=== PATIENT | male | born 1970 | race African-American/Black ===

== ENCOUNTER → 2019-01-26 | Day surgery (SDC) | payer BC ==
[2019-01-19 12:52] LABS: BASOPHILS % 0.4 % (0.0-1.0); EOSINOPHILS # (AUTO) 0.1 (0.0-0.4); EOSINOPHILS % 1.4 % (0.0-6.0); HEMATOCRIT 43.6 % (38.2-49.6); HEMOGLOBIN 14.5 g/dL (14.0-18.0); LYMPHOCYTES % 40.3 % (18.0-39.1); MEAN CORPUSCULAR HEMOGLOBIN 26.4 pg (28-32); MEAN CORPUSCULAR HGB CONC 33.3 g/dL (31-35); MEAN CORPUSCULAR VOLUME 79.3 fL (81-99); MONOCYTES # (AUTO) 0.4 (0.2-0.8); MONOCYTES % 7.1 % (4.4-11.3); NEUTROPHILS # (AUTO) 2.5 (2.1-6.9); NEUTROPHILS % 50.4 % (38.7-80.0); PLATELET COUNT 181 x10e3/uL (140-360); RED CELL DISTRIBUTION WIDTH 13.1 % (11.7-14.4)
[2019-01-19 13:09] LABS: ANION GAP 10.9 mmol/L (8-16); BLOOD UREA NITROGEN 13 mg/dL (7-26); BUN/CREATININE RATIO 12 (6-25); CARBON DIOXIDE 26 mmol/L (22-29); CHLORIDE 103 mmol/L (98-107); CREATININE, SERUM 1.07 mg/dL (0.72-1.25); EST GLOMERULAR FILTRATION RATE > 60 ML/MIN (60-); GLUCOSE 96 mg/dL (74-118); POTASSIUM 3.9 mmol/L (3.5-5.1); SODIUM 136 mmol/L (136-145)
[~2019-01-26] MED LIST: BUPIVACAINE 0.25%/EPI 30ML SDV INJ ONE; DEXAMETHASONE SOD PHOS INJ 4 MG/ML VIAL ONE; FENTANYL CITRATE/PF 100MCG/2 ML INJ ONE; LIDOCAINE HCL 2% LOCAL INJ 5 ML SDV VIAL INJ ONE; MIDAZOLAM HCL 2 MG/2 ML VIAL ONE; ONDANSETRON HCL INJ 2MG/ML 2ML 2 MG/ML VIAL ONE; PROPOFOL IV EMULSION 10 MG/ML 20 ML VIAL ONE; SEVOFLURANE INHAL SOLN 250 ML PEN BTL ONE
--- OUTSIDE RECORDS SUMMARY | 2019-01-26 06:51 | XMS REPORT | Clinical Summary ---
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 Active Problems No known active problems Encounters Care Team Description Date Type Specialty Cem Bui MD 07/18/2018 Telephone Internal Medicine Cem Bui MD Carbuncle (Primary Dx); Soft tissue injury of lower leg, sequela; Weight gain 07/12/2018 Office Visit Internal Medicine Cem Bui MD 06/07/2018 Telephone Internal Medicine after 01/25/2018 Family History Medical History Relation Name Comments Arthritis Father Hypertension Mother Relation Name Status Comments Father Alive Mother Alive Social History Date Tobacco Use Types Packs/Day Years Used Never Smoker Smokeless Tobacco: Never Used Alcohol Use Drinks/Week oz/Week Comments Yes social Sex Assigned at Date Recorded Not on file Industry Job Start Date Occupation Not on file Not on file Not on file Travel End Travel History Travel Start No recent travel history available. Last Filed Vital Signs Time Taken Vital Sign Reading 07/12/2018 1:15 PM CDT Blood Pressure 135/81 07/12/2018 1:15 PM CDT Pulse 77 07/12/2018 1:15 PM CDT Temperature 36.9 C (98.5 F) - Respiratory Rate - 07/12/2018 1:15 PM CDT Oxygen Saturation 98% - Inhaled Oxygen - Concentration 07/12/2018 1:15 PM CDT Weight 118 kg (260 lb 9.6 oz) 07/12/2018 1:15 PM CDT Height 180.3 cm (5' 11") 07/12/2018 1:15 PM CDT Body Mass Index 36.35 Plan of Treatment Health Maintenance Due Date Last Done Comments INFLUENZA VACCINE 05/17/2019 Procedures Comments Procedure Name Priority Date/Time Associated Diagnosis THYROID STIMULATING Routine 07/12/2018 [facility] HORMONE 2:12 PM CDT URINALYSIS, AUTOMATED Routine 07/12/2018 [place] WITH MICROSCOPY 2:12 PM CDT HEMOGLOBIN A1C Routine 07/12/2018 Carbuncle 2:12 PM CDT COMPREHENSIVE METABOLIC Routine 07/12/2018 [facility] PANEL 2:12 PM CDT CBC WITH PLATELET AND Routine 07/12/2018 [facility] DIFFERENTIAL 2:12 PM CDT after 01/25/2018 Results * Urinalysis, automated with microscopy (07/12/2018 2:12 PM CDT) Color, UA YELLOW YELLOW [facility] [place] Appearance CLEAR CLEAR [facility] [place] Specific gravity, urine 1.021 1.001 - 1.035 [facility] [place] pH, urine 7.5 5.0 - 8.0 [facility] [place] Glucose, urine NEGATIVE NEGATIVE [facility] [place] Bilirubin, UA NEGATIVE NEGATIVE [facility] [place] Ketones, UA NEGATIVE NEGATIVE [facility] [place] Occult blood, urine NEGATIVE NEGATIVE [facility] [place] Protein, UA NEGATIVE NEGATIVE [facility] [place] Nitrite, UA NEGATIVE NEGATIVE [facility] [place] Leukocyte esterase, UA NEGATIVE NEGATIVE [facility] [place] WBC, UA NONE SEEN < OR=5 /HPF [facility] [place] RBC, UA 0-2 < OR=2 /HPF [facility] [place] Squamous epithelial NONE SEEN < OR=5 /HPF [facility] cells, [facility] [place] Bacteria, UA NONE SEEN NONE SEEN /HPF [facility] [place] Hyaline casts, UA NONE SEEN NONE SEEN /LPF [facility] [place] Specimen Urine Resulting Agency Comment Performing Organization Information: Site ID: [id number] Name: [facility] Address: [address] [place] [id number] Director: Mary Alice Torres Performing Organization Address City/State/Zipcode Phone Number [facility] [address] [address] * CBC with platelet and differential (07/12/2018 2:12 PM CDT) WBC 5.5 3.8 - 10.8 Thousand/uL [facility] [place] RBC 5.54 4.20 - 5.80 Million/uL [facility] [place] HGB 15.0 13.2 - 17.1 g/dL [facility] [place] HCT 43.7 38.5 - 50.0 % [facility] [place] MCV 78.9 (L) 80.0 - 100.0 fL [facility] [place] MCH 27.1 27.0 - 33.0 pg [facility] [place] MCHC 34.3 32.0 - 36.0 g/dL [facility] [place] RDW 13.8 11.0 - 15.0 % [facility] [place] Platelet count 167 140 - 400 Thousand/uL [facility] [place] MPV 10.6 7.5 - 12.5 fL [facility] [place] Neutrophils, absolute 2,316 1,500 - 7,800 cells/uL [facility] [place] Lymphocytes, absolute 2,497 850 - 3,900 cells/uL [facility] [place] Monocytes, absolute 479 200 - 950 cells/uL [facility] [place] Eosinophils, absolute 182 15 - 500 cells/uL [facility] [place] Basophils, absolute 28 0 - 200 cells/uL [facility] [place] Neutrophils 42.1 % [facility] [place] Lymphocytes 45.4 % [facility] [place] Monocytes 8.7 % [facility] [place] Eosinophils 3.3 % [facility] [place] Basophils + RC 0.5 % [facility] [place] Specimen Blood Resulting Agency Comment Performing Organization Information: Site ID: [id number] Name: [facility] Address: [address] [place] [phone] Director: Mary Alice Torres Performing Organization Address [facility] [place] [address] * Thyroid stimulating hormone (07/12/2018 2:12 PM CDT) TSH 1.73 0.40 - 4.50 mIU/L [facility] [place] Specimen Blood Resulting Agency Comment Performing Organization Information: Site ID: [id number] Name: [facility] Address: [address] [place] [id number] Director: Mary Alice Torres Performing Organization Address [facility] Phone Number [facility] [address] [address] * Hemoglobin A1c (07/12/2018 2:12 PM CDT) Hemoglobin A1C 6.5 (H) <5.7 % of total Hgb [facility] Comment: [place] For someone without known diabetes, a hemoglobin A1c value of 6.5% or greater indicates that they may have diabetes and this should be confirmed with a follow-up test. For someone with known diabetes, a value <7% indicates that their diabetes is well controlled and a value greater than or equal to 7% indicates suboptimal control. A1c targets should be individualized based on duration of diabetes, age, comorbid conditions, and other considerations. Currently, no consensus exists regarding use of hemoglobin A1c for diagnosis of diabetes for children. Specimen Blood Resulting Agency Comment Performing Organization Information: Site ID: [id number] Name: [facility] Address: [address] [place] [phone] Director: Mary Alice Torres Performing Organization Address City/State/Zipcode Phone Number [facility] [address] [address] * Comprehensive metabolic panel (07/12/2018 2:12 PM CDT) Glucose 103 (H) 65 - 99 mg/dL [facility] Comment: [place] Fasting reference interval For someone without known diabetes, a glucose value between 100 and 125 mg/dL is consistent with prediabetes and should be confirmed with a follow-up test. BUN, whole blood 13 7 - 25 mg/dL [facility] Creatinine 1.10 0.60 - 1.35 mg/dL [facility] EGFR Non-Afr. [place] 80 > OR=60 mL/min/1.73m2 [facility] EGFR 93 > OR=60 mL/min/1.73m2 [facility] BUN/creatinine ratio NOT APPLICABLE 6 - 22 (calc) [facility] Sodium 137 135 - 146 mmol/L [facility] Potassium 4.2 3.5 - 5.3 mmol/L [facility] Chloride 101 98 - 110 mmol/L [facility] [place] CO2 30 20 - 32 mmol/L [facility] [place] Calcium 9.1 8.6 - 10.3 mg/dL [facility] [place] Protein 7.9 6.1 - 8.1 g/dL [facility] Albumin, S 4.2 3.6 - 5.1 g/dL [facility] Globulin, total 3.7 1.9 - 3.7 g/dL (calc) [facility] [place] Albumin/globulin ratio 1.1 1.0 - 2.5 (calc) [facility] [place] Total bilirubin 0.4 0.2 - 1.2 mg/dL [facility] [place] Alkaline phosphatase 61 40 - 115 U/L [facility] [place] AST 20 10 - 40 U/L [facility] [place] ALT 9 9 - 46 U/L [facility] [place] Specimen Blood Resulting Agency Comment Performing Organization Information: Site ID: [id number] Name: [facility] Address: [address] [place] [phone] Director: Mary Alice Torres Performing Organization Address City/State/Zipcode Phone Number [facility] [place] [address] [place] [address] after 01/25/2018 Insurance Payer Benefit Subscriber ID Type Phone Address Plan / Group BCBS BCBS xxxxxxxxxxxx PPO CHOICE PPO/DEE L EMPL PPO Advance Directives Patient has advance care planning documents on file. For more information, rodolfo hernandez contact: Lico Meier [address] [place] [address]
[2019-01-26 12:35] VITALS: BP 132/61
--- NOTE | 2019-01-26 18:03 | Operative Report ---
DATE OF PROCEDURE: 01/26/2019 SURGEON: Atul Julien MD PREOPERATIVE DIAGNOSIS: Cystic mass of the left posterior thigh. POSTOPERATIVE DIAGNOSIS: Cystic mass of the left posterior thigh. OPERATION PERFORMED: Excision of cystic mass of left posterior thigh. ANESTHESIA: General. COMPLICATIONS: None. ESTIMATED BLOOD LOSS: Minimal. DESCRIPTION OF PROCEDURE: With the patient lying in bed in the lateral position under good general anesthesia, the left thigh and hip area were prepped with Betadine solution and draped in the usual manner. The area surrounding the mass was then infiltrated with 0.25% Marcaine with epinephrine. An elliptical incision was then made to include the skin overlying the mass and then flaps were developed all the way around. This was a well encapsulated mass, which appeared to be somewhat cystic. It was stuck in its deep planes all the way down to the fascia of the thigh. The mass was totally incomplete, from all the surrounding structures without violating its borders and resected, and sent for pathological examination. The whole area was then thoroughly irrigated. Perfect hemostasis was ascertained. The deep tissues were then reapproximated with interrupted sutures of 2-0 Vicryl. Subcutaneous tissue was approximated with 2-0 Vicryl and the skin was closed with interrupted vertical mattress sutures of 2-0 silk. A dressing was applied. The sponge, lap, and needle count were correct. The patient tolerated the procedure well and returned to the recovery room in stable condition. Atul Julien MD JLR/MODL /[id number]
== END | disposition home or self-care (01) ==
LOC: OR 06:49
PROVIDERS: ATTEND Surgery
DX: M79.89 Other specified soft tissue disorders (principal); M60.25 Foreign body granuloma of soft tissue, not elsewhere classified, thigh; Z18.89 Other specified retained foreign body fragments; E66.01 Morbid (severe) obesity due to excess calories; Z01.810 Encounter for preprocedural cardiovascular examination; Z01.812 Encounter for preprocedural laboratory examination
CPT/HCPCS: 27337; 36415; 80048; 85025; 88305; 93005; J1100; J2001; J2250; J2405; J2704; 88304